=== PATIENT | male | born 1965 | race Caucasian/White ===

== ENCOUNTER 2019-02-19 01:13 | Inpatient (IN) | payer MEDICAID ==
[2019-02-19] MEDS ORDERED: Lidocaine 2% MPF* 2 ML VIAL ONE (01:34)
[2019-02-19] MEDS ORDERED: Tetan/Diph/Pertus SYR(Tdap)* 0.5 ML SYR(BOOSTRIX) use SYR IM ONE (01:45)
[2019-02-19] MEDS ORDERED: Bacitracin OINTMENT* 0.5% 0.5 oz TUBE ONE (01:54)
[2019-02-19] MEDS ORDERED: LORazepam INJ* 2 MG/ML 1 ML VIAL ONE (01:56)
[2019-02-19] MEDS ORDERED: Haloperidol INJ IV/IM* 5 MG/ML AMP ONE (02:14)
[2019-02-19 03:52] LABS: ALT 52 U/L (7-52); AST 64 U/L (13-39); Albumin 3.6 g/dL (3.2-5.2); Albumin/Globulin Ratio 0.9 (1-3); Alkaline Phosphatase 133 U/L (34-104); Anion Gap 10 mmol/L (2-11); BUN/Creatinine Ratio 15.7 (8-20); Blood Urea Nitrogen 13 mg/dL (6-24); CO2 Carbon Dioxide 21 mmol/L (22-32); Calcium 8.6 mg/dL (8.6-10.3); Chloride 106 mmol/L (101-111); EGFR African American 116.8 (>60); EGFR Non-African American 96.5 (>60); Glucose 183 mg/dL (70-100); Potassium 3.5 mmol/L (3.5-5.0); Sodium 137 mmol/L (135-145); Total Protein 7.6 g/dL (6.4-8.9)
[2019-02-19] MEDS ORDERED: NS 0.9% 1000 ML** 1,000 ML IV ONE (04:06)
[2019-02-19 04:14] LABS: Acetaminophen < 15 mcg/mL; Alcohol 372 mg/dL (<10); Salicylate < 2.50 mg/dL (<30); TSH (Thyroid Stimulating Horm) 2.17 mcIU/mL (0.34-5.60)
[2019-02-19 04:16] LABS: ABS Basophils 0.1 10^3/ul (0-0.2); ABS Eosinophils 0.1 10^3/ul (0-0.6); ABS Lymphocytes 2.5 10^3/ul (1.0-4.8); ABS Monocytes 0.8 10^3/ul (0-0.8); ABS Neutrophils 6.7 10^3/ul (1.5-7.7); ABS Nucleated RBC 0 10^3/ul; Eosinophil % 0.8 %; Hematocrit 45 % (36-46); Hemoglobin 15.3 g/dL (14.0-18.0); Lymphocyte % 24.4 %; Mean Corpuscular HGB Conc 34 g/dL (31-36); Mean Corpuscular Hemoglobin 34 pg (27-31); Mean Corpuscular Volume 101 fL (80-94); Nucleated Red Blood Cells % 0.1; Red Blood Count 4.48 10^6 /uL (4.18-5.48); Red Cell Distribution Width 14 % (10.5-15); White Blood Count 10.3 10^3/uL (3.5-10.8)
--- NOTE | 2019-02-19 04:30 | ED ---
Laceration/Wound HPI - HPI Summary HPI Summary: The patient is a 53 year old male who is presenting to the [facility] with a chief complaint of a laceration on the left wrist. The patient was reportedly found fallen down outside and was prior to that, drinking with his friends. The amount of drinks he has consumed is reported to have been 7 beers and half a bottle of whisky. He is currently overly intoxicated and has abrasions on his back, chest, shoulder and on his arm. The bleeding in these areas is controlled. He reports SI and has been stating "I just want to " prior to [facility] which led to his friend calling the police. PMHx includes depression. No medication was reported by the patient. The symptoms are aggravated by nothing. The symptoms are alleviated by nothing. The pain is rated to be 0/10 in severity. . - History of Current Complaint Stated Complaint: "MHE/LT WRIST INJURY" PER EMS Time Seen by Provider: 02/19/19 01:22 Hx Obtained From: Patient, Other: - Police Report Onset/Duration: Sudden Onset Aggravating: Nothing Alleviating: Nothing Pain Intensity: 0 Pain Scale Used: 0-10 Numeric Associated Signs & Symptoms: Negative PMH/Surg Hx/FS Hx/Imm Hx Sensory History: Denies: Hx Deafness Opthamlomology History: Denies: Hx Legally Blind EENT History: Denies: Hx Deafness Psychiatric History: Reports: Hx Depression Infectious Disease History: No Infectious Disease History: Denies: Traveled Outside the [place] in Last 30 Days - Family History Known Family History: Positive: Non-Contributory Family History: Reviewed and Noncontributory. - Social History Occupation: Employed Full-time Alcohol Use: Daily Alcohol Amount: 6-10 beers Substance Use Type: Reports: None Smoking Status (MU): Former Smoker Review of Systems Constitutional: Negative Eyes: Negative ENT: Negative Cardiovascular: Negative Respiratory: Negative Gastrointestinal: Negative Genitourinary: Negative Musculoskeletal: Negative Skin: Other - Laceration to the left wrist Positive: Other - Abrasions to the back, chest, shoulder and on his both arms. Neurological: Negative Psychological: Other - SI All Other Systems Reviewed And Are Negative: Yes Physical Exam - Summary Physical Exam Summary: VITAL SIGNS: Reviewed. GENERAL: Patient is a well-developed and nourished (MALE) who is lying comfortable in the stretcher. Patient is not in any acute respiratory distress. HEAD AND FACE: No signs of trauma. No ecchymosis, hematomas or skull depressions. No sinus tenderness. EYES: PERRLA, EOMI x 2, No injected conjunctiva, no nystagmus. EARS: Hearing grossly intact. Ear canals and tympanic membranes are within normal limits. MOUTH: Oropharynx within normal limits. NECK: Supple, trachea is midline, no adenopathy, no JVD, no carotid bruit, no c- spine tenderness, neck with full ROM. CHEST: Symmetric, no tenderness at palpation LUNGS: Clear to auscultation bilaterally. No wheezing or crackles. CVS: Regular rate and rhythm, S1 and S2 present, no murmurs or gallops appreciated. ABDOMEN: Soft, non-tender. No signs of distention. No rebound no guarding, and no masses palpated. Bowel sounds are normal. EXTREMITIES: FROM in all major joints, no edema, no cyanosis or clubbing. NEURO: Alert and oriented x 3. No acute neurological deficits. Speech is normal and follows commands. SKIN: 8 cm laceration; Over the left wrist At the ventral side surface Triage Information Reviewed: Yes Vital Signs On Initial Exam: Initial Vitals BP 157/95 02/19/19 00:31 Vital Signs Reviewed: Yes Procedures - Laceration/Wound Repair 1 Location: Other - Left Wrist Anesthesia: Lido - 2% Lidocaine with No Epi Length, Depth and Shape: 20 siria with good allignment and hemostasis Diagnostics - Vital Signs Vital Signs Temp Pulse Resp BP Pulse Ox 02/19/19 04:00 69 97 02/19/19 03:58 67 80/48 97 02/19/19 03:57 68 90/51 96 02/19/19 03:31 70 99/60 97 02/19/19 03:27 75 93/55 95 02/19/19 03:18 78 16 93 02/19/19 02:32 16 166/97 02/19/19 02:14 79 95 02/19/19 01:33 96 97 02/19/19 01:31 89 157/95 97 02/19/19 01:19 97.9 F 91 18 157/95 96 02/19/19 00:31 157/95 - Laboratory Lab Results: Lab Results 02/19/19 02/19/19 Range/Units 02:03 02:04 WBC 10.3 (3.5-10.8) 10^3/uL RBC 4.48 (4.18-5.48) 10^6 /uL Hgb 15.3 (14.0-18.0) g/dL Hct 45 (36-46) % MCV 101 H (80-94) fL MCH 34 H (27-31) pg MCHC 34 (31-36) g/dL RDW 14 (10.5-15) % Plt Count Pending MPV Pending Neut % (Auto) 65.6 % Lymph % (Auto) 24.4 % Van Zandt % (Auto) 8.0 % Eos % (Auto) 0.8 % Baso % (Auto) 1.2 % Absolute Neuts (auto) 6.7 (1.5-7.7) 10^3/ul Absolute Lymphs (auto) 2.5 (1.0-4.8) 10^3/ul Absolute Monos (auto) 0.8 (0-0.8) 10^3/ul Absolute Eos (auto) 0.1 (0-0.6) 10^3/ul Absolute Basos (auto) 0.1 (0-0.2) 10^3/ul Absolute Nucleated RBC 0 10^3/ul Nucleated RBC % 0.1 Sodium 137 (135-145) mmol/L Potassium 3.5 (3.5-5.0) mmol/L Chloride 106 (101-111) mmol/L Carbon Dioxide 21 L (22-32) mmol/L Anion Gap 10 (2-11) mmol/L BUN 13 (6-24) mg/dL Creatinine 0.83 (0.67-1.17) mg/dL Est GFR ( Amer) 116.8 (>60) Est GFR (Non-Af Amer) 96.5 (>60) BUN/Creatinine Ratio 15.7 (8-20) Glucose 183 H (70-100) mg/dL Calcium 8.6 (8.6-10.3) mg/dL Total Bilirubin 0.80 (0.2-1.0) mg/dL AST 64 H (13-39) U/L ALT 52 (7-52) U/L Alkaline Phosphatase 133 H (34-104) U/L Total Protein 7.6 (6.4-8.9) g/dL Albumin 3.6 (3.2-5.2) g/dL Globulin 4.0 (2-4) g/dL Albumin/Globulin Ratio 0.9 L (1-3) TSH 2.17 (0.34-5.60) mcIU/mL Salicylates < 2.50 (<30) mg/dL Acetaminophen < 15 mcg/mL Serum Alcohol 372 H (<10) mg/dL Result Diagrams: 02/19/19 02:04 02/19/19 02:03 Lab Statement: Any lab studies that have been ordered have been reviewed, and results considered in the medical decision making process. - CT Cervical Spine CT CT Interpretation Completed By: Radiologist Summary of CT Findings: Cervical CT as per radiologist reveals No acute fracture. The ED Physician has reviewed this radiology report Brain CT CT Interpretation Completed By: Radiologist Summary of CT Findings: Brain CT as per radiologist reveals No acute intracranial abnormality. The ED Physician has reviewed this radiology report Laceration Repair Course/Dx - Course Course Of Treatment: The patient is a 53 year old male who is presenting to the [facility] with a chief complaint of a laceration on the left wrist. He is currently overly intoxicated. He reports SI. The patient received a laceration and wound repair over his left wrist as described in the procedure note. The patient has received a Brain CT and a Cervical Spine CT in the [facility] which revealed negative findings. The patient is currently pending sobriety and will be signed out to Dr. Mosley with a dx of alcohol intoxication, depression and left wrist laceration. - Clinical Impression Provider Diagnoses: Laceration of left wrist, Depression, Alcohol intoxication Discharge - Sign-Out/Discharge Documenting (check all that apply): Sign-Out Patient Signing out patient TO: Cristi Mosley - Discharge Plan Condition: Stable Referrals: No Primary Care Phys,NOPCP [Primary Care Provider] - - Attestation Statements Document Initiated by Scribe: Yes Documenting Scribe: Jose Mcleod Provider For Whom Scribe is Documenting (Include Credential): Dr. Dary Walker Scribe Attestation: Jose Maxwell, scribed for Dr. Dary Walker on 02/19/19 at 0640. Status of Scribe Document: Ready
[2019-02-19 05:18] LABS: Mean Platelet Volume 10.6 fL (7.4-10.4); Platelet Count 75 10^3/uL (150-450)
[2019-02-19 05:34] LABS: Urine Appearance Clear; Urine Bilirubin Negative (Negative); Urine Blood Negative (Negative); Urine Color Straw; Urine Glucose Negative (Negative); Urine Ketones Negative (Negative); Urine Nitrite Negative (Negative); Urine Protein Negative (Negative); Urine Specific Gravity 1.004 (1.010-1.030); Urine Urobilinogen Negative (Negative)
[2019-02-19 05:59] LABS: Urine Benzodiazepine Screen None Detected (None Detect); Urine Opiates Screen None Detected (None Detect)
--- NOTE | 2019-02-19 08:30 | ED ---
Progress - Progress Note Progress Note: This patient was signed out from Dr. Walker to Dr. Mosley upon shift change at 07: 00 02/19/19 pending sobriety. The patient has been cleared for MHE. The patient will be signed out to Dr. Walker upon shift change at 19:00 02/19/19 pending MHE. Re-Evaluation - Re-Evaluation First Eval Re-Evaluation Time: 18:40 Change: Unchanged Comment: Pt is medically cleared for MHE. Course/Dx - Course Course Of Treatment: This patient was signed out from Dr. Walker to Dr. Mosley upon shift change at 07:00 02/19/19 pending sobriety. The patient has been cleared for MHE. The patient will be signed out to Dr. Walker upon shift change at 19:00 02/19/19 pending MHE. - Diagnoses Provider Diagnoses: Laceration of left wrist, Depression, Alcohol intoxication Discharge - Sign-Out/Discharge Documenting (check all that apply): Sign-Out Patient, Receiving Sign-Out Signing out patient TO: Dary Walker Receiving patient FROM: Dary Walker Patient Received Moderate/Deep Sedation with Procedure: No - Discharge Plan Condition: Stable Referrals: No Primary Care Phys,NOPCP [Primary Care Provider] - - Billing Disposition and Condition Condition: STABLE - Attestation Statements Document Initiated by Scribe: Yes Documenting Scribe: Felton Hand Provider For Whom Scribe is Documenting (Include Credential): Cristi Mosley MD Scribe Attestation: Felton Maxwell, scribed for Cristi Mosley MD on 02/19/19 at 1843. Scribe Documentation Reviewed: Yes Provider Attestation: The documentation as recorded by the Felton benavides accurately reflects the service I personally performed and the decisions made by me, Cristi Mosley MD Status of Scribe Document: Viewed
--- NOTE | 2019-02-19 19:14 | ED ---
Progress - Progress Note Progress Note: This patient was signed out from Dr. Mosley to Dr. Walker upon physician shift change pending mental health evaluation. Re-Evaluation - Re-Evaluation First Eval Re-Evaluation Time: 18:40 Change: Unchanged Comment: Pt is medically cleared for MHE. Course/Dx - Course Course Of Treatment: This patient was signed out from Dr. Mosley to Dr. Walker upon physician shift change pending mental health evaluation. Discussed patient care with Dr. Mancilla, psychiatrist, who recommended involuntary admission of the patient to [facility] psychiatric facility. Dx unspecified depressive disorder. Patient will be admitted to [facility] psychiatric facility. - Diagnoses Provider Diagnoses: Major depressive disorder, single episode, unspecified - Provider Notifications Discussed Care Of Patient With: Ward Mancilla Time Discussed With Above Provider: 21:37 Instructed by Provider To: Other - Dr. Mancilla, psychiatrist, recommended involuntary admission of the patient to [facility] psychiatric facility. Dx unspecified depressive disorder. Discharge - Sign-Out/Discharge Documenting (check all that apply): Patient Departure - admit to [facility] psych, Receiving Sign-Out Receiving patient FROM: Cristi Mosley - Discharge Plan Condition: Stable Disposition: PSYCHIATRIC FACILITY-[facility] Referrals: No Primary Care Phys,NOPCP [Primary Care Provider] - - Attestation Statements Document Initiated by Scribe: Yes Documenting Scribe: Mariana James Provider For Whom Scribe is Documenting (Include Credential): Dary Walker MD Scribe Attestation: Mariana Maxwell, scribed for Dary Walker MD on 02/19/19 at 2141. Status of Scribe Document: Ready
[2019-02-20] MEDS ORDERED: Lorazepam PYXIS KEY PRN (02:27)
[2019-02-20] MEDS ORDERED: LORazepam IM 0-6 mg for WAM protocol IM SCH (03:00)
[2019-02-20] MEDS ORDERED: LORazepam PO 0-6 for WAM protocol PO SCH (03:00)
[2019-02-20 07:54] LABS: HDL Cholesterol 18.5 mg/dL
[2019-02-20] MEDS: Vitamin THERAPEUTIC TAB PO SCH (09:24)
[2019-02-20] MEDS ORDERED: buPROPion TAB* 100 MG PO ONE (11:51)
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
[2019-02-21] MEDS: Vitamin THERAPEUTIC TAB PO SCH (09:36)
[2019-02-21] MEDS: Al Hydrox/Mg Hydrox/Simet LIQ* 30 ML UDC PO PRN (18:26)
[2019-02-22] MEDS: Vitamin THERAPEUTIC TAB PO SCH (09:10)
[2019-02-22] MEDS: Al Hydrox/Mg Hydrox/Simet LIQ* 30 ML UDC PO PRN (18:01)
--- NOTE | 2019-02-22 20:16 | PN ---
Subjective - Subjective Date of Service: 02/22/19 Subjective: Ming reports feeling "amazing" today after a restful night of sleep, thanks to better pillows. He denies SI/HI or alcohol withdrawal symptoms. He remembers giving consent for wellbutrin but he is unsure if he has been receiving it. Per staff, he has been mostly seclusive to his room. Objective - General Observations Appearance: Well Groomed Appears Stated Age: Yes Stature: WNL Posture: WNL Eye Contact: Average Behavior/Activity: WNL - Interaction Observations Attitude Towards Examiner: Evasive Stated Mood: Euthymic Affect: Restricted Speech Pattern/Tone: Clear Thought Process: Coherent, Goal Directed Perception: WNL Thought Content: WNL Hallucination Type: None Delusion Type: None - Cognitive Function Orientation: A&O x 4 Level of Consciousness: Alert Cognition: WNL Estimated Intelligence: Normal Insight: WNL - Medication Compliance Cooperative with Inpatient Medication Regimen: Yes - Group Participation Participates in Group Activities: No Assessment - Assessment Clinical Impression: Progressing well through alcohol detoxification, evidence of memory impairments , confusion and confabulation obvious. Wernicke-korsakoff syndrome should be considered! Plan - Plan Treatment Plan: Name: JEFF MCKEE Birthdate: 1965 [id number] Medications: Current Medications Acetaminophen (Tylenol Tab*) 650 mg PO Q4H PRN PRN Reason: PAIN or TEMP > 101 F Al Hydrox/Mg Hydrox/Simethicone (Maalox Plus*) 30 ml PO Q4H PRN PRN Reason: INDIGESTION Last Admin: 02/22/19 18:01 Dose: 30 ml Lorazepam (Ativan Tab(*)) 0 - 6 mg PO .PER [facility] PARAMETERS JOY; Protocol Lorazepam (Ativan Inj*) 0 - 6 mg IM .PER [facility] PROTOCOL JOY; Protocol Miscellaneous (Ativan Pyxis Adams) 1 ea N/A .PYXIS ADAMS PRN PRN Reason: PER PROTOCOL Multivitamins (Theragran Tab*) 1 tab PO DAILY [facility] Last Admin: 02/22/19 09:10 Dose: Not Given - Discharge Plan Discharge Plan: Drug/Alcohol Rehab Outpatient Program: TBD
[2019-02-23] MEDS ORDERED: diPHENhydraMINE PO* 50 MG PO ONE (00:30)
[2019-02-23] MEDS ORDERED: diPHENhydraMINE PO* 50 MG ONE (00:35)
[2019-02-23] MEDS: Vitamin THERAPEUTIC TAB PO SCH (09:04)
[2019-02-23] MEDS: Acetaminophen TAB* 325 MG PO PRN (12:29)
--- NOTE | 2019-02-23 12:35 | PN ---
Subjective - Subjective Date of Service: 02/23/19 Service Type: 91208 Hosp care 15 min low complexity Subjective: Patient is exhibiting poor insight into psychiatric needs. He minimizes past suicide attempts. Patient identifies that alcohol use has likely been a passive suicide gesture. He diverts conversation about mental health status and reports desire for assistance with housing problems, including black mold when asked about mood. Left wrist assessed to be healing well, mild serosangineous drainage noted. He reports pain and agrees to utilize apap. Objective - General Observations Appearance: Well Groomed Stature: Thin Posture: WNL Eye Contact: Average Behavior/Activity: WNL - Interaction Observations Attitude Towards Examiner: Cooperative Stated Mood: Dysphoric Affect: Flat Speech Pattern/Tone: Clear, Appropriate, Normal Volume Thought Process: Impoverished Perception: WNL Thought Content: Depressive Thought Process: Lethality: Passive Wish Hallucination Type: Denies Delusion Type: Denies - Cognitive Function Orientation: A&O x 4 Level of Consciousness: Alert Cognition: Impaired Memory Estimated Intelligence: Normal Insight: Difficulty Acknowledging Presence of Psyciatric Problems Judgment Within Normal Limits: No Ability to Make Reasonable Decisions: Moderately Impaired - Medication Compliance Cooperative with Inpatient Medication Regimen: Yes - Group Participation Participates in Group Activities: Yes Assessment - Assessment Merits Inpatient Hospitalization: For Immediate Safety, For Stabilization Inpatient DSM-V Dx: F33.1 Clinical Impression: Progressing well through alcohol detoxification, evidence of memory impairments , confusion and confabulation obvious. Wernicke-korsakoff syndrome should be considered! Plan - Plan Treatment Plan: Name: JEFF MCKEE Birthdate: 1965 [id number] continue acute intensive psychiatric treatment. may decrease to q30min and allow staff pass. start buproprion XL 150mg daily and trazodone 50mg prn qhs insomnia. DC wam. add thiamine for consideration of wernicke-karsakoff syndrome. discharge planning to include referrals for primary care and mental health/ substance use counseling. Continued Medication Management: Start Medication Medications: Current Medications Acetaminophen (Tylenol Tab*) 650 mg PO Q4H PRN PRN Reason: PAIN or TEMP > 101 F Last Admin: 02/23/19 12:29 Dose: 650 mg Al Hydrox/Mg Hydrox/Simethicone (Maalox Plus*) 30 ml PO Q4H PRN PRN Reason: INDIGESTION Last Admin: 02/22/19 18:01 Dose: 30 ml Lorazepam (Ativan Tab(*)) 0 - 6 mg PO .PER [facility] PARAM[facility]ERS JOY; Protocol Lorazepam (Ativan Inj*) 0 - 6 mg IM .PER [facility] PROTOCOL JOY; Protocol Miscellaneous (Ativan Pyxis Adams) 1 ea N/A .PYXIS ADAMS PRN PRN Reason: PER PROTOCOL Multivitamins (Theragran Tab*) 1 tab PO DAILY [facility] Last Admin: 02/23/19 09:04 Dose: Not Given - Discharge Plan Discharge Plan: Inpatient Hospitalization
[2019-02-23] MEDS: BuPROPion XL* 150 MG TAB.XL PO SCH (14:28)
[2019-02-23] MEDS: traZODone TAB* 50 MG TAB PO PRN (23:25)
[2019-02-24] MEDS: Vitamin THERAPEUTIC TAB PO SCH (08:15)
[2019-02-24] MEDS: BuPROPion XL* 150 MG TAB.XL PO SCH (08:16)
[2019-02-24] MEDS: Thiamine TAB* 100 MG TAB PO SCH (09:05)
--- NOTE | 2019-02-24 14:43 | PN ---
Subjective - Subjective Date of Service: 02/24/19 Service Type: [id number] Hosp care 15 min low complexity Subjective: Patient reports improved sleep. When asked about mood or treatment, patient continues to deflect and tell stories of family or humorous anecdotes. He agrees to consider inpatient substance use treatment. He reports minimal coping skills other than "an ice cold beer." He endorses insight that returning to home, only knowing people who drink alcohol is likely going to result in worsening symptoms. He appears to try to refrain from crying when discussing relationship with late father. Objective - General Observations Appearance: Well Groomed Stature: WNL Posture: WNL Eye Contact: Average Behavior/Activity: WNL - Interaction Observations Attitude Towards Examiner: Cooperative Stated Mood: Euthymic Affect: Full Speech Pattern/Tone: Clear, Appropriate, Normal Volume Thought Process: Coherent, Goal Directed Perception: WNL Thought Content: WNL Thought Process: Lethality: Passive Wish Hallucination Type: Denies Delusion Type: Denies - Cognitive Function Orientation: A&O x 4 Level of Consciousness: Alert Cognition: WNL Estimated Intelligence: Normal Insight: Difficulty Acknowledging Presence of Psyciatric Problems Judgment Within Normal Limits: No Ability to Make Reasonable Decisions: Moderately Impaired - Medication Compliance Cooperative with Inpatient Medication Regimen: Yes - Group Participation Participates in Group Activities: Yes Assessment - Assessment Merits Inpatient Hospitalization: For Immediate Safety, For Stabilization, For Discharge Planning Inpatient DSM-V Dx: F33.1 Clinical Impression: 53yo wm with extensive history of alcohol dependence and major depressive d/o who presented to ED after suicide gesture via cutting left wrist. He had an aborted attempt earlier that day. He is considering inpatient substance use treatment and is at great risk for relapse/ if discharged prematurely. Progressing well through alcohol detoxification, evidence of memory impairments , confusion and confabulation obvious. Wernicke-korsakoff syndrome should be considered. Plan - Plan Treatment Plan: Name: JEFF MCKEE Birthdate: 1965 [id number] continue acute intensive psychiatric treatment. may decrease to q30min and allow staff pass. continue current medications: buproprion XL 150mg daily and trazodone 50mg prn qhs insomnia. thiamine for consideration of wernicke-karsakoff syndrome. discharge planning to include referrals for primary care and substance use treatment. Continued Medication Management: Start Medication Medications: Current Medications Acetaminophen (Tylenol Tab*) 650 mg PO Q4H PRN PRN Reason: PAIN or TEMP > 101 F Last Admin: 02/23/19 12:29 Dose: 650 mg Al Hydrox/Mg Hydrox/Simethicone (Maalox Plus*) 30 ml PO Q4H PRN PRN Reason: INDIGESTION Last Admin: 02/22/19 18:01 Dose: 30 ml Bupropion HCl (Wellbutrin Xl *) 150 mg PO DAILY [facility] Last Admin: 02/24/19 08:16 Dose: 150 mg Multivitamins (Theragran Tab*) 1 tab PO DAILY [facility] Last Admin: 02/24/19 08:15 Dose: Not Given Thiamine HCl (Vitamin B-1 Tab*) 200 mg PO DAILY [facility] Last Admin: 02/24/19 09:05 Dose: 200 mg Trazodone HCl (Desyrel Tab*) 50 mg PO BEDTIME PRN PRN Reason: INSOMNIA Last Admin: 02/23/19 23:25 Dose: 50 mg - Discharge Plan Discharge Plan: Drug/Alcohol Rehab
[2019-02-24] MEDS: Acetaminophen TAB* 325 MG PO PRN ×2 (16:51→23:35)
[2019-02-24] MEDS: Al Hydrox/Mg Hydrox/Simet LIQ* 30 ML UDC PO PRN (18:08)
[2019-02-24] MEDS: traZODone TAB* 50 MG TAB PO PRN (22:04)
[2019-02-25] MEDS: Thiamine TAB* 100 MG TAB PO SCH (08:41)
[2019-02-25] MEDS: BuPROPion XL* 150 MG TAB.XL PO SCH (08:42)
[2019-02-25] MEDS: Vitamin THERAPEUTIC TAB PO SCH (08:43)
--- NOTE | 2019-02-25 09:43 | PN ---
Subjective - Subjective Date of Service: 02/25/19 Service Type: 73575 Hosp care 15 min low complexity Subjective: Patient is bright upon approach. He is actively participating in groups and is social with peers. He completed ASHLIE packet given to him last evening. He met with insurance navigator to establish health care coverage. He reports tenderness at staple site on anterior left wrist. Site open to air with bacitracin applied. noted to have well approximation, no drainage, erythema surrounding site. Objective - General Observations Appearance: Well Groomed Stature: WNL Posture: WNL Eye Contact: Average Behavior/Activity: WNL - Interaction Observations Attitude Towards Examiner: Cooperative Stated Mood: Euthymic Affect: Bright Speech Pattern/Tone: Clear, Appropriate, Normal Volume Thought Process: Coherent, Goal Directed, Impoverished Perception: WNL Thought Content: WNL Hallucination Type: Denies Delusion Type: Denies - Cognitive Function Orientation: A&O x 4 Level of Consciousness: Alert Cognition: WNL Estimated Intelligence: Normal Insight: WNL Judgment Within Normal Limits: Yes - Medication Compliance Cooperative with Inpatient Medication Regimen: Yes - Group Participation Participates in Group Activities: Yes Assessment - Assessment Merits Inpatient Hospitalization: For Immediate Safety, For Stabilization, For Discharge Planning Inpatient DSM-V Dx: F33.1 Clinical Impression: 53yo wm with extensive history of alcohol dependence and major depressive d/o who presented to ED after suicide gesture via cutting left wrist. He had an aborted attempt earlier that day. He is tolerating medications and psychiatrically stabilized. He is agreeing to inpatient substance use treatment and is at great risk for relapse/ if discharged prematurely. Plan - Plan Treatment Plan: Name: JEFF MCKEE Birthdate: 1965 [id number] continue acute intensive psychiatric treatment. may decrease to q30min and allow staff pass. continue current medications: buproprion XL 150mg daily and trazodone 50mg prn qhs insomnia. thiamine for consideration of wernicke-karsakoff syndrome. discharge planning to include referrals for primary care and substance use treatment. Medications: Current Medications Acetaminophen (Tylenol Tab*) 650 mg PO Q4H PRN PRN Reason: PAIN or TEMP > 101 F Last Admin: 02/24/19 23:35 Dose: 650 mg Al Hydrox/Mg Hydrox/Simethicone (Maalox Plus*) 30 ml PO Q4H PRN PRN Reason: INDIGESTION Last Admin: 02/24/19 18:08 Dose: 30 ml Bupropion HCl (Wellbutrin Xl *) 150 mg PO DAILY [facility] Last Admin: 02/25/19 08:42 Dose: 150 mg Multivitamins (Theragran Tab*) 1 tab PO DAILY [facility] Last Admin: 02/25/19 08:43 Dose: Not Given Thiamine HCl (Vitamin B-1 Tab*) 200 mg PO DAILY [facility] Last Admin: 02/25/19 08:41 Dose: 200 mg Trazodone HCl (Desyrel Tab*) 50 mg PO BEDTIME PRN PRN Reason: INSOMNIA Last Admin: 02/24/19 22:04 Dose: 50 mg - Discharge Plan Discharge Plan: Drug/Alcohol Rehab
--- NOTE | 2019-02-25 16:18 | PN ---
BSU: Group Therapy Note - Service Type Service Type: 08817 Group Psychotherapy - Group Participation Patient Participating in Group: Yes Level of Group Participation: Attentive, Spontaneously Participate Relatedness to Group: Well Related - Ming participated well. He was well related and answered questions. He had a euthymic outlook and appeared pleased to have answers to his questions.
[2019-02-25] MEDS: Acetaminophen TAB* 325 MG PO PRN (17:57)
[2019-02-25] MEDS: Lidocaine 5% OINT* TUBE TOPICAL PRN ×2 (18:10→20:13)
[2019-02-25] MEDS: traZODone TAB* 50 MG TAB PO PRN (21:07)
[2019-02-26] MEDS: Acetaminophen TAB* 325 MG PO PRN ×2 (05:25→10:32)
[2019-02-26] MEDS: Lidocaine 5% OINT* TUBE TOPICAL PRN ×2 (06:05→20:41)
[2019-02-26] MEDS: BuPROPion XL* 150 MG TAB.XL PO SCH (08:38)
[2019-02-26] MEDS: Vitamin THERAPEUTIC TAB PO SCH (08:38)
[2019-02-26] MEDS: Thiamine TAB* 100 MG TAB PO SCH (08:38)
--- NOTE | 2019-02-26 11:39 | PN ---
Subjective - Subjective Date of Service: 02/26/19 Service Type: 38585 Hosp care 15 min low complexity Subjective: Thanh is seen in coverage for NPP, Melony Martinez. He is euthymic and reports that "Every day is a little bit better." He continues to deny SI and is resolved to going to rehab to get himself clean. I note that the patient's left wrist is healing well from his self-inflicted laceration and confirmed with ED attending, Dr. Su, that the siria are due for removal today, being 7 days after their application. The patient tolerates the removal of all 20 siria with some discomfort, which is amenable to topical lidocaine. The wound is then cleaned and dressed. He has no other complaints and has been going to groups and participating with milieu expectations in an agreeable fashion. Objective - General Observations Appearance: Well Groomed Appears Stated Age: Yes Stature: WNL Posture: WNL Eye Contact: Average Behavior/Activity: WNL - Interaction Observations Attitude Towards Examiner: Cooperative Stated Mood: Euthymic Affect: Full Speech Pattern/Tone: Clear Thought Process: Coherent Perception: WNL Thought Content: WNL Hallucination Type: None Delusion Type: None - Cognitive Function Orientation: A&O x 4 Level of Consciousness: Awake Cognition: WNL Estimated Intelligence: Normal Insight: WNL Judgment Within Normal Limits: Yes - Medication Compliance Cooperative with Inpatient Medication Regimen: Yes - Group Participation Participates in Group Activities: Yes Assessment - Assessment Merits Inpatient Hospitalization: Consolidate Improvements, Pending Safe DC Plan Inpatient DSM-V Dx: F33.1 Clinical Impression: 53yo wm with extensive history of alcohol dependence and major depressive d/o who presented to ED after suicide gesture via cutting left wrist. He had an aborted attempt earlier that day. He is tolerating medications and psychiatrically stabilized. He is agreeing to inpatient substance use treatment and is at great risk for relapse/ if discharged prematurely. Plan - Plan Treatment Plan: Name: THANH MCKEE Birthdate: 1965 [id number] continue acute intensive psychiatric treatment. may decrease to q30min and allow staff pass. continue current medications: buproprion XL 150mg daily and trazodone 50mg prn qhs insomnia. thiamine for consideration of wernicke-karsakoff syndrome. discharge planning to include referrals for primary care and substance use treatment. Continued Medication Management: Start Medication Medications: Current Medications Acetaminophen (Tylenol Tab*) 650 mg PO Q4H PRN PRN Reason: PAIN or TEMP > 101 F Last Admin: 02/26/19 10:32 Dose: 650 mg Al Hydrox/Mg Hydrox/Simethicone (Maalox Plus*) 30 ml PO Q4H PRN PRN Reason: INDIGESTION Last Admin: 02/24/19 18:08 Dose: 30 ml Bupropion HCl (Wellbutrin Xl *) 150 mg PO DAILY [facility] Last Admin: 02/26/19 08:38 Dose: 150 mg Multivitamins (Theragran Tab*) 1 tab PO DAILY [facility] Last Admin: 02/26/19 08:38 Dose: Not Given Thiamine HCl (Vitamin B-1 Tab*) 200 mg PO DAILY [facility] Last Admin: 02/26/19 08:38 Dose: 200 mg Trazodone HCl (Desyrel Tab*) 50 mg PO BEDTIME PRN PRN Reason: INSOMNIA Last Admin: 02/25/19 21:07 Dose: 50 mg - Discharge Plan Discharge Plan: Drug/Alcohol Rehab
[2019-02-26] MEDS: Al Hydrox/Mg Hydrox/Simet LIQ* 30 ML UDC PO PRN (18:40)
[2019-02-26] MEDS: traZODone TAB* 50 MG TAB PO PRN (21:57)
[2019-02-27] MEDS: Lidocaine 5% OINT* TUBE TOPICAL PRN ×2 (05:50→12:42)
[2019-02-27] MEDS: Thiamine TAB* 100 MG TAB PO SCH (08:40)
[2019-02-27] MEDS: Vitamin THERAPEUTIC TAB PO SCH (08:40)
[2019-02-27] MEDS: BuPROPion XL* 150 MG TAB.XL PO SCH (08:40)
--- NOTE | 2019-02-27 11:49 | PN ---
Subjective - Subjective Date of Service: 02/27/19 Service Type: 80368 Hosp care 15 min low complexity Subjective: Patient is euthymic with bright affect, pleasant and jovial. He is cooperative with unit routines and medications. He reports improved mood and hopefulness in regards to plan for substance use treatment. He is tolerating buproprion XL and reports improved sleep with trazodone. Objective - General Observations Appearance: Well Groomed Stature: WNL Posture: WNL Eye Contact: Average Behavior/Activity: WNL - Interaction Observations Attitude Towards Examiner: Cooperative Stated Mood: Euthymic Affect: Bright Speech Pattern/Tone: Clear, Appropriate, Normal Volume Thought Process: Coherent, Goal Directed Perception: WNL Thought Content: WNL Hallucination Type: Denies Delusion Type: Denies - Cognitive Function Orientation: A&O x 4 Level of Consciousness: Alert Cognition: WNL Estimated Intelligence: Normal Insight: WNL Judgment Within Normal Limits: Yes - Medication Compliance Cooperative with Inpatient Medication Regimen: Yes - Group Participation Participates in Group Activities: Yes Assessment - Assessment Merits Inpatient Hospitalization: For Immediate Safety, For Stabilization, For Discharge Planning Inpatient DSM-V Dx: F33.1 Clinical Impression: 53yo wm with extensive history of alcohol dependence and major depressive d/o who presented to ED after suicide gesture via cutting left wrist. He had an aborted attempt earlier that day. He is successfully detoxed from alcohol, tolerating medications and psychiatrically stabilized. He is agreeing to inpatient substance use treatment and is at great risk for relapse/ if discharged prematurely. Plan - Plan Treatment Plan: Name: JEFF MCKEE Birthdate: 1965 [id number] continue acute intensive psychiatric treatment. may decrease to q30min and allow staff pass. continue current medications: buproprion XL 150mg daily and trazodone 50mg prn qhs insomnia. thiamine for consideration of wernicke-karsakoff syndrome. discharge planning to include referrals for primary care and substance use treatment. Medications: Current Medications Acetaminophen (Tylenol Tab*) 650 mg PO Q4H PRN PRN Reason: PAIN or TEMP > 101 F Last Admin: 02/26/19 10:32 Dose: 650 mg Al Hydrox/Mg Hydrox/Simethicone (Maalox Plus*) 30 ml PO Q4H PRN PRN Reason: INDIGESTION Last Admin: 02/26/19 18:40 Dose: 30 ml Bupropion HCl (Wellbutrin Xl *) 150 mg PO DAILY [facility] Last Admin: 02/27/19 08:40 Dose: 150 mg Lidocaine (Xylocaine 5% Oint*) 1 applic TOPICAL Q6H PRN PRN Reason: PAIN Last Admin: 02/27/19 05:50 Dose: 1 applic Multivitamins (Theragran Tab*) [address] [facility] Last Admin: 02/27/19 08:40 Dose: Not Given Thiamine HCl (Vitamin B-1 Tab*) [address] [facility] Last Admin: 02/27/19 08:40 Dose: 200 mg Trazodone HCl (Desyrel Tab*) 50 mg PO BEDTIME PRN PRN Reason: INSOMNIA Last Admin: 02/26/19 21:57 Dose: 50 mg - Discharge Plan Discharge Plan: Drug/Alcohol Rehab
[2019-02-28] MEDS: Acetaminophen TAB* 325 MG PO PRN ×2 (00:55→16:11)
[2019-02-28] MEDS: traZODone TAB* 50 MG TAB PO PRN (00:55)
[2019-02-28] MEDS: BuPROPion XL* 150 MG TAB.XL PO SCH (08:36)
[2019-02-28] MEDS: Thiamine TAB* 100 MG TAB PO SCH (08:36)
[2019-02-28] MEDS: Vitamin THERAPEUTIC TAB PO SCH (08:36)
[2019-02-28] MEDS: Al Hydrox/Mg Hydrox/Simet LIQ* 30 ML UDC PO PRN (18:25)
[2019-03-01] MEDS: Thiamine TAB* 100 MG TAB PO SCH (08:37)
[2019-03-01] MEDS: BuPROPion XL* 150 MG TAB.XL PO SCH (08:37)
[2019-03-01] MEDS: Vitamin THERAPEUTIC TAB PO SCH (08:48)
[2019-03-01] MEDS: traZODone TAB* 50 MG TAB PO PRN (20:58)
[2019-03-02] MEDS: Thiamine TAB* 100 MG TAB PO SCH (08:27)
[2019-03-02] MEDS: BuPROPion XL* 150 MG TAB.XL PO SCH (08:27)
[2019-03-02] MEDS: Vitamin THERAPEUTIC TAB PO SCH (08:28)
[2019-03-02] MEDS: Acetaminophen TAB* 325 MG PO PRN (15:22)
--- NOTE | 2019-03-02 16:21 | PN ---
Subjective - Subjective Date of Service: 03/02/19 Service Type: 71791 Hosp care 25 min moderate complexity Subjective: Patient exhibits poor memory with confabulation. For example, he has been fully participating in programming and is surprised when informed of a daily weekly group that he has been attending. He states understanding of probable long-term effects of alcoholism. Patient reports history of full treatment for hep C approx 7-8 years ago and recalls being told to recheck in 10 years. He is interested in hepatitis testing. Patient's wrist laceration observed to be well approximated with no drainage. Objective - General Observations Appearance: Well Groomed Stature: WNL Posture: WNL Eye Contact: Average Behavior/Activity: WNL - Interaction Observations Attitude Towards Examiner: Cooperative Stated Mood: Euthymic Affect: Bright Speech Pattern/Tone: Clear, Appropriate, Normal Volume Thought Process: Coherent, Impoverished Perception: WNL Thought Content: WNL Hallucination Type: Denies Delusion Type: Denies - Cognitive Function Orientation: A&O x 4 Level of Consciousness: Alert Cognition: Impaired Memory Estimated Intelligence: Normal Insight: WNL Judgment Within Normal Limits: Yes - Medication Compliance Cooperative with Inpatient Medication Regimen: Yes - Group Participation Participates in Group Activities: Yes Assessment - Assessment Merits Inpatient Hospitalization: For Immediate Safety, For Stabilization, For Discharge Planning Inpatient DSM-V Dx: F33.1 Clinical Impression: 53yo wm with extensive history of alcohol dependence and major depressive d/o who presented to ED after suicide gesture via cutting left wrist. He had an aborted attempt earlier that day. He is successfully detoxed from alcohol, tolerating medications and psychiatrically stabilized. He is agreeing to inpatient substance use treatment and is at great risk for relapse/ if discharged prematurely. Plan - Plan Treatment Plan: Name: JEFF MCKEE Birthdate: 1965 [id number] continue acute intensive psychiatric treatment. may decrease to q30min and allow staff pass. continue current medications: buproprion XL 150mg daily and trazodone 50mg prn qhs insomnia. thiamine for consideration of wernicke-karsakoff syndrome. discharge planning to include referrals for primary care and substance use treatment. obtain hepatitis panel on 03/03/19 Medications: Current Medications Acetaminophen (Tylenol Tab*) 650 mg PO Q4H PRN PRN Reason: PAIN or TEMP > 101 F Last Admin: 03/02/19 15:22 Dose: 650 mg Al Hydrox/Mg Hydrox/Simethicone (Maalox Plus*) 30 ml PO Q4H PRN PRN Reason: INDIGESTION Last Admin: 02/28/19 18:25 Dose: 30 ml Bupropion HCl (Wellbutrin Xl *) 150 mg PO DAILY [facility] Last Admin: 03/02/19 08:27 Dose: 150 mg Lidocaine (Xylocaine 5% Oint*) 1 applic TOPICAL Q6H PRN PRN Reason: PAIN Last Admin: 02/27/19 12:42 Dose: 1 applic Multivitamins (Theragran Tab*) 1 tab PO DAILY [facility] Last Admin: 03/02/19 08:28 Dose: Not Given Thiamine HCl (Vitamin B-1 Tab*) 200 mg PO DAILY [facility] Last Admin: 03/02/19 08:27 Dose: 200 mg Trazodone HCl (Desyrel Tab*) 50 mg PO BEDTIME PRN PRN Reason: INSOMNIA Last Admin: 03/01/19 20:58 Dose: 50 mg - Discharge Plan Discharge Plan: Drug/Alcohol Rehab
[2019-03-02] MEDS: Al Hydrox/Mg Hydrox/Simet LIQ* 30 ML UDC PO PRN (17:33)
[2019-03-02] MEDS: Lidocaine 5% OINT* TUBE TOPICAL PRN (18:07)
[2019-03-02] MEDS: traZODone TAB* 50 MG TAB PO PRN (20:56)
[2019-03-03] MEDS: Vitamin THERAPEUTIC TAB PO SCH (08:27)
[2019-03-03] MEDS: Thiamine TAB* 100 MG TAB PO SCH (08:28)
[2019-03-03] MEDS: BuPROPion XL* 150 MG TAB.XL PO SCH (08:28)
[2019-03-03 12:16] LABS: Hepatitis C Antibody High Reactive (Nonreactive)
[2019-03-03 12:42] LABS: Hepatitis B Surface Antigen Nonreactive (Nonreactive)
[2019-03-03] MEDS: Acetaminophen TAB* 325 MG PO PRN (13:20)
[2019-03-03] MEDS: Al Hydrox/Mg Hydrox/Simet LIQ* 30 ML UDC PO PRN (16:35)
[2019-03-03] MEDS: traZODone TAB* 50 MG TAB PO PRN (22:34)
[2019-03-04] MEDS: BuPROPion XL* 150 MG TAB.XL PO SCH (08:26)
[2019-03-04] MEDS: Thiamine TAB* 100 MG TAB PO SCH (08:26)
[2019-03-04] MEDS: Vitamin THERAPEUTIC TAB PO SCH (08:27)
--- NOTE | 2019-03-04 14:55 | PN ---
Subjective - Subjective Date of Service: 03/04/19 Service Type: 07823 Hosp care 15 min low complexity Subjective: Patient reports anxiety in regards to discharge to inpatient rehab. He is validated for this and for effort he has made while in hospital. He is notified of positive hepatits C and recommendation to follow up with primary care in outpatient setting. Patient denies SI or passive wish. He is beginning to exhibit insight into alcohol use and risk for suicide. Objective - General Observations Appearance: Well Groomed Stature: WNL Posture: WNL Eye Contact: Average Behavior/Activity: WNL - Interaction Observations Attitude Towards Examiner: Cooperative, Anxious Stated Mood: Euthymic Affect: Full Speech Pattern/Tone: Clear, Appropriate, Normal Volume Thought Process: Coherent, Goal Directed Perception: WNL Thought Content: WNL Hallucination Type: None Delusion Type: None - Cognitive Function Orientation: A&O x 4 Level of Consciousness: Alert Cognition: WNL, Impaired Memory Estimated Intelligence: Normal Insight: WNL Judgment Within Normal Limits: Yes - Medication Compliance Cooperative with Inpatient Medication Regimen: Yes - Group Participation Participates in Group Activities: Yes Assessment - Assessment Merits Inpatient Hospitalization: For Immediate Safety, Pending Safe DC Plan Inpatient DSM-V Dx: F33.1 Clinical Impression: 53yo wm with extensive history of alcohol dependence and major depressive d/o who presented to ED after suicide gesture via cutting left wrist. He had an aborted attempt earlier that day. He is successfully detoxed from alcohol, tolerating medications and psychiatrically stabilized. He is agreeing to inpatient substance use treatment and is at great risk for relapse/ if discharged prematurely. Plan - Plan Treatment Plan: Name: JEFF MCKEE Birthdate: 1965 [id number] continue acute intensive psychiatric treatment. may decrease to q30min and allow staff pass. continue current medications: buproprion XL 150mg daily and trazodone 50mg prn qhs insomnia. thiamine for consideration of wernicke-karsakoff syndrome. discharge to [facility] in [place] on 03/05/19 Medications: Current Medications Acetaminophen (Tylenol Tab*) 650 mg PO Q4H PRN PRN Reason: PAIN or TEMP > 101 F Last Admin: 03/03/19 13:20 Dose: 650 mg Al Hydrox/Mg Hydrox/Simethicone (Maalox Plus*) 30 ml PO Q4H PRN PRN Reason: INDIGESTION Last Admin: 03/03/19 16:35 Dose: 30 ml Bupropion HCl (Wellbutrin Xl *) 150 mg PO DAILY [facility] Last Admin: 03/04/19 08:26 Dose: 150 mg Lidocaine (Xylocaine 5% Oint*) 1 applic TOPICAL Q6H PRN PRN Reason: PAIN Last Admin: 03/02/19 18:07 Dose: 1 applic Multivitamins (Theragran Tab*) 1 tab PO DAILY [facility] Last Admin: 03/04/19 08:27 Dose: Not Given Thiamine HCl (Vitamin B-1 Tab*) 200 mg PO DAILY [facility] Last Admin: 03/04/19 08:26 Dose: 200 mg Trazodone HCl (Desyrel Tab*) 50 mg PO BEDTIME PRN PRN Reason: INSOMNIA Last Admin: 03/03/19 22:34 Dose: 50 mg - Discharge Plan Discharge Plan: Drug/Alcohol Rehab
[2019-03-04] MEDS: Acetaminophen TAB* 325 MG PO PRN (21:22)
[2019-03-04] MEDS: traZODone TAB* 50 MG TAB PO PRN (22:32)
[2019-03-05 07:46] VITALS: BP 131/93
[2019-03-05] MEDS: Lidocaine 5% OINT* TUBE TOPICAL PRN (07:47)
[2019-03-05] MEDS: BuPROPion XL* 150 MG TAB.XL PO SCH (08:40)
[2019-03-05] MEDS: Thiamine TAB* 100 MG TAB PO SCH (08:40)
[2019-03-05] MEDS: Vitamin THERAPEUTIC TAB PO SCH (08:40)
--- NOTE | 2019-03-06 01:46 | DS ---
CC: [facility] in [place] * DISCHARGE SUMMARY: DATE OF ADMISSION: 02/19/19 DATE OF DISCHARGE: 03/05/19 SUPERVISING PSYCHIATRIST: Fei Marcus MD.* (DICTATED BY TERE CALLES NP) DISCHARGE DIAGNOSES: 1. Major depressive disorder, severe, without psychotic features. 2. Alcohol use disorder, in early remission. 3. Tobacco use disorder. CONDITION AT THE TIME OF DISCHARGE: Improved. The patient is euthymic with bright affect. He reports mild anxiety in regards to transfer to inpatient substance use treatment and this is validated by treatment provider. He is also encouraged that he has made much effort while in the hospital. He denies SI or passive wish. He is beginning to exhibit insight into alcohol use and risks for worsening mental health. He is notified of positive hepatitis C and recommendation to follow up with primary care in outpatient setting. He is discharged to [facility] in [place]. MENTAL STATUS EXAM: Ming is a 53-year-old white male with barnard thinning hair, unshaven; otherwise, well kempt. He is casually dressed in his own clothing. His posture is erect. He is cooperative, pleasant, and answers questions fully. He is alert and oriented x3. Eye contact is good. Speech is normal in rate, rhythm, and volume. Mood is euthymic with bright affect. No abnormal psychomotor activity noted. Thought process is logical, goal directed, and coherent. Thought content is negative for SI or passive wish. He denies auditory or visual hallucinations. Insight and judgement are fair. Fund of knowledge is adequate. INSTRUCTIONS GIVEN TO THE PATIENT: A. Medications: 1. Bupropion XL 150 mg p.o. daily. 2. Thiamine 200 mg p.o. daily. 3. Trazodone 50 mg p.o. at bedtime p.r.n. for insomnia. 4. Multivitamin daily. B. Diet: Regular. C. Activity: Ambulation as tolerated. Tobacco cessation was declined by the patient. There are no pending labs or diagnostic studies. D. Followup care: The patient is referred to [facility] in [place] for inpatient substance use treatment. He is given information about [facility] physician referral to establish primary care. E. Substance use followup: As above, to [facility] for substance use inpatient treatment. FDA approved medication is contraindicated due to elevated liver enzymes. HOSPITAL COURSE: Part A: Reason for Admission: The patient presented to the emergency department with alcohol intoxication and recent suicide attempt via cutting his wrist. Thanh received sutures and jerson in the emergency room due to self-inflicted laceration on anterior left wrist. Also, while in the emergency room, he received a brain CT that showed no acute intracranial injury and a cervical spine CT with no acute fractures. Laboratory Data: Upon arrival, alcohol level was 372. This was at 0200 hours on 02/19/19. CBC showed an MCV of 101, MCH 34, platelet count 75, MPV 10.6. Chemistry: Low carbon dioxide of 21, glucose high at arrival of 183, AST 64, alkaline phosphatase 133. Hemoglobin A1c normal at 4.9. Lipid panel within normal limits. TSH normal at 2.17. Urinalysis within normal limits. Toxicology negative and urine drug screen was negative. Part B: Psychiatric Treatment Rendered: The patient was admitted to [facility] on involuntary status. His code status was full. He was placed on [facility] protocol for alcohol withdrawal monitoring and safety checks every 15 minutes. He was encouraged to participate in supportive milieu, individual sessions with staff, and psycho-educational groups. He agreed to trial bupropion for depression. He tolerated bupropion well, reported improved mood. He endorsed difficulty initiating sleep. He responded well to trazodone. While on the unit, the patient was calm and in behavioral control. He was pleasant and cooperative, interactive with staff and peers. He reported some thoughts of drinking, but otherwise denied withdrawal effects. He was monitored on [place] protocol and primarily showed tremors. He was successfully detoxed and WAM was discontinued. The patient was noted to minimize or deflect suicide history; for example, he has made various attempts that he told family were just accidents. He endorsed significant alcohol dependence since the age of 8. Memory impairment was noteworthy; therefore, thiamine was started. The patient reported stressor of returning home due to risk for relapse. He was agreeable to referral for inpatient substance use treatment. In the meantime, he met with Medicaid navigator to establish healthcare insurance. The patient was accepted to [facility] in [place]. He reported some mild anxiety in regards to this. He was validated and supported. He was safe on all checks and in behavior control. He was decreased to 30-minute observation and allowed staff pass and was generally pleasant to work with. Jerson were removed during the hospitalization. Afterwards we placed Steri-Strips for a few days due to a small portion of the laceration not being well approximated. At the time of discharge, the patient's laceration was healing intact with no drainage. [facility]. TERE CALLES, [employer] [id number]/[facility] #: [id number] GREG
== END 2019-03-05 09:55 | DRG 751 ==
LOC: ED 01:13 → BSU 21:56
PROVIDERS: ADMIT Psychiatry & Neurology Psychiatry; ATTEND Psychiatry & Neurology Psychiatry
PROC: 0HQEXZZ Repair Left Lower Arm Skin, External Approach (ICD-10-PCS; principal; 2019-02-19)
PROC: GZHZZZZ Group Psychotherapy (ICD-10-PCS; 2019-02-25)
DX: F33.2 Major depressive disorder, recurrent severe without psychotic features (principal); Y90.8 Blood alcohol level of 240 mg/100 ml or more; S61.512A Laceration without foreign body of left wrist, initial encounter; X78.9XXA Intentional self-harm by unspecified sharp object, initial encounter; S20.319A Abrasion of unspecified front wall of thorax, initial encounter; S40.219A Abrasion of unspecified shoulder, initial encounter; S40.812A Abrasion of left upper arm, initial encounter; S40.811A Abrasion of right upper arm, initial encounter; F17.210 Nicotine dependence, cigarettes, uncomplicated; J30.2 Other seasonal allergic rhinitis; F04 Amnestic disorder due to known physiological condition; F10.229 Alcohol dependence with intoxication, unspecified; G47.00 Insomnia, unspecified; Z91.5 Personal history of self-harm; Y92.9 Unspecified place or not applicable
CPT/HCPCS: 36415; 70450; 72125; 80053; 80061; 80074; 80307; 80320; 80329; 81003; 83036; 84443; 85025; 85060; 90715; 90853; 99222; 99231; 99232; 99238; 99284; A9270-GY; G0480; J1630; J2060